=== PATIENT | female | born 1980 | race Caucasian/White ===

== ENCOUNTER 2016-09-19 13:25 | Emergency (ER) | payer MEDICAID ==
[2016-09-19 13:25] VITALS: BMI 23.3
[2016-09-19 13:38] VITALS: RESP 20
[2016-09-19 14:49] LABS: RBC URINE 3 /hpf (0-3); URINE BILIRUBIN NEGATIVE (NEGATIVE); URINE BLOOD 1+ (NEGATIVE); URINE COLOR Yellow (YELLOW); URINE GLUCOSE (UA) NORMAL (Normal); URINE KETONE NEGATIVE (NEGATIVE); URINE LEUKOCYTE ESTERASE NEG Leu/uL (Negative); URINE PROTEIN NEGATIVE (NEGATIVE); URINE UROBILINOGEN NORMAL mg/dL (0.2-1.0); WBC URINE 1 /hpf (0-5)
--- NOTE | 2016-09-19 14:56 | C.PDOC ---
History Of Present Illness The patient, a 36 y/o female whose PMHx includes chronic lower back pain, presents to the ED for evaluation of exacerbation of lower back pain which began a few days ago. Patient denies fever, chills, abdominal pain, UTI symptoms , urinary/bowel incontinence, saddle anesthesia, upper/lower extremity numbness/ weakness, or recent trauma/injury to the affected area. Time Seen by Provider: 09/19/16 14:03 Chief Complaint (Nursing): Back Pain History Per: Patient History/Exam Limitations: no limitations Onset/Duration Of Symptoms: Persistent Current Symptoms Are (Timing): Still Present Quality Of Discomfort: "Pain" Previous Symptoms: Back Pain, Chronic Pain Associated Symptoms: denies: Incontinence, New Weakness, New Numbness Additional History Per: Patient Past Medical History Reviewed: Historical Data, Nursing Documentation, Vital Signs Vital Signs: Last Vital Signs Temp 97.8 F 09/19/16 15:06 Pulse 80 09/19/16 15:06 Resp 20 09/19/16 15:06 BP 97/67 L 09/19/16 15:06 Pulse Ox 99 09/19/16 16:25 - Medical History PMH: Back Problems Surgical History: No Surg Hx Family History: States: Unknown Family Hx - Social History Hx Tobacco Use: No Hx Alcohol Use: No Hx Substance Use: No - Immunization History Hx Tetanus Toxoid Vaccination: No Hx Influenza Vaccination: No Hx Pneumococcal Vaccination: No Review Of Systems Except As Marked, All Systems Reviewed And Found Negative. Constitutional: Negative for: Fever, Chills Gastrointestinal: Negative for: Abdominal Pain Genitourinary: Negative for: Dysuria, Incontinence, Hematuria Musculoskeletal: Positive for: Back Pain (lower ) Neurological: Negative for: Weakness, Numbness, Other (saddle anesthesia ) Physical Exam - Physical Exam Appears: Well, Non-toxic, No Acute Distress Skin: Normal Color, Warm, Dry, No Rash Eye(s): bilateral: PERRL Throat: Normal, No Erythema, No Exudate Neck: Supple Cardiovascular: Rhythm Regular Respiratory: No Decreased Breath Sounds, No Accessory Muscle Use, No Stridor, No Wheezing Gastrointestinal/Abdominal: Soft, No Tenderness, No Distention, No Guarding Back: No CVA Tenderness, Paraspinal Tenderness (diffuse lumbar paraspinal tenderness. No midine tenderness. No skin changes, no palpable deformity.) Extremity: No Pedal Edema, No Deformity Neurological/Psych: Oriented x3, Normal Speech, Normal Motor, Normal Sensation, Normal Reflexes ED Course And Treatment O2 Sat by Pulse Oximetry: 99 (on RA ) Pulse Ox Interpretation: Normal Progress Note: UA ordered and reviewed. Patient received Motrin PO and Valium PO. On re-evaluation, pt is afebrile, hemodynamicaly stable. Ambulatory in ED with stable gait. ENT: no acute findings. Abd: benign. Neurologicaly intact. UA results review and appears normal. Pt has clinical findings c/w chronic lower back pain.Pt advised. ref. to F/u with PMD and PM in 1-2 days for re- eavluation. Return to ED if any worsening or new changes. Disposition Counseled Patient/Family Regarding: Studies Performed, Diagnosis, Need For Followup, Rx Given - Disposition Referrals: Sue Mcqueen MD [Non-Staff] - Disposition: HOME/ ROUTINE Disposition Time: 14:53 Condition: STABLE Additional Instructions: Light duty to lower back, avoid heavy lifting, bending, etc. Take medication as prescribed Follow up with PMD in 2-3 days for re-evaluation. Return to ED if any worsening or new changes. Prescriptions: Ibuprofen [Motrin Tab] 600 mg PO Q6 #20 tab Methocarbamol [Robaxin] 500 mg PO TID #14 tab traMADol [Ultram] 50 mg PO TID #7 tab Instructions: Chronic Back Pain (ED) - Clinical Impression Clinical Impression: Low back pain - PA / CHEMISTRY TEACHER / Resident Statement MD/DO has reviewed & agrees with the documentation as recorded. - Scribe Statement The provider has reviewed the documentation as recorded by the Scribe (Eulalia Montenegro) All medical record entries made by the Scribe were at my direction and personally dictated by me. I have reviewed the chart and agree that the record accurately reflects my personal performance of the history, physical exam, medical decision making, and the department course for this patient. I have also personally directed, reviewed, and agree with the discharge instructions and disposition.
[2016-09-19 15:07] VITALS: BP 97/67; PULSE 80; TEMP 97.8; O2SAT 99
== END 2016-09-19 15:07 | disposition home or self-care (01) ==
LOC: C.ER 13:25
DX: M54.5 Low back pain (principal)

== ENCOUNTER 2016-10-31 10:02 | Emergency (ER) | payer MEDICAID ==
[2016-10-31 10:04] VITALS: BMI 23.8
[2016-10-31 10:08] VITALS: BP 113/74; PULSE 86; RESP 18; TEMP 98; O2SAT 100
--- NOTE | 2016-10-31 10:24 | C.PDOC ---
History Of Present Illness 36 year old female presents to the ED with complaints of left sided back pain that radiates down to the left buttocks and lateral thigh exacerbated with back extension. Patient suffered from back pain for 10 years and had a MRI approximately 5 years ago showing herniated disks. She states she has had multiple prior ER visits for back pain that is typically diffuse lower back pain. Patient also notes no relief with ultram or muscle relaxers but is requesting "shot [she] got last time". Patient denies any associated numbness or weakness. Time Seen by Provider: 10/31/16 10:23 Chief Complaint (Nursing): Back Pain History Per: Patient History/Exam Limitations: no limitations Onset/Duration Of Symptoms: Persistent Current Symptoms Are (Timing): Still Present Quality Of Discomfort: "Pain" Previous Symptoms: Back Pain Associated Symptoms: None Exacerbating Factor(s): Other (back extension ) Recent travel outside of the [place]: No Additional History Per: Prior Records Past Medical History Reviewed: Historical Data, Nursing Documentation, Vital Signs Vital Signs: Last Vital Signs Temp 98 F 10/31/16 10:06 Pulse 86 10/31/16 10:06 Resp 18 10/31/16 10:06 BP 113/74 10/31/16 10:06 Pulse Ox 100 10/31/16 11:09 - Medical History PMH: Back Problems Family History: States: Unknown Family Hx - Social History Hx Tobacco Use: No Hx Alcohol Use: No Hx Substance Use: No - Immunization History Hx Tetanus Toxoid Vaccination: No Hx Influenza Vaccination: No Hx Pneumococcal Vaccination: No Review Of Systems Constitutional: Negative for: Fever, Chills Cardiovascular: Negative for: Chest Pain Respiratory: Negative for: Shortness of Breath Gastrointestinal: Negative for: Nausea, Vomiting, Abdominal Pain, Diarrhea Musculoskeletal: Positive for: Back Pain, Leg Pain (radiating from back pain to left buttocks and lateral thigh ) Neurological: Negative for: Weakness, Numbness Physical Exam - Physical Exam Appears: Non-toxic, No Acute Distress Skin: Warm, Dry Head: Atraumatic Eye(s): bilateral: Normal Inspection, PERRL, EOMI Oral Mucosa: Moist Neck: Supple Chest: Symmetrical, No Deformity Cardiovascular: Rhythm Regular Respiratory: Normal Breath Sounds, No Rhonchi, No Wheezing Back: No CVA Tenderness, No Vertebral Tenderness, Decreased ROM (limited full extension due to pain ), No Paraspinal Tenderness Extremity: Normal ROM, No Tenderness Neurological/Psych: Oriented x3, Normal Speech, Normal Cognition, Normal Cranial Nerves, Normal Motor, Normal Sensation, Normal Reflexes Gait: Steady ED Course And Treatment O2 Sat by Pulse Oximetry: 100 (room air ) Progress - Data Reviewed Data Reviewed: Old records Disposition Counseled Patient/Family Regarding: Diagnosis, Need For Followup, Rx Given - Disposition Referrals: YOUR,PMD [Other] Disposition: HOME/ ROUTINE Disposition Time: 10:34 Condition: IMPROVED Prescriptions: Dexamethasone 12 mg PO ONCE #2 tab Ibuprofen [Motrin] 600 mg PO Q6 #30 tab Instructions: Sciatica (ED) Forms: Work Excuse - Clinical Impression Clinical Impression: Sciatica - Scribe Statement The provider has reviewed the documentation as recorded by the Scribcory Romo All medical record entries made by the Scribe were at my direction and personally dictated by me. I have reviewed the chart and agree that the record accurately reflects my personal performance of the history, physical exam, medical decision making, and the department course for this patient. I have also personally directed, reviewed, and agree with the discharge instructions and disposition.
== END 2016-10-31 10:47 | disposition home or self-care (01) ==
LOC: C.ER 10:02
DX: M54.32 Sciatica, left side (principal)
CPT/HCPCS: 96372; 99283; J1885

== ENCOUNTER 2017-01-24 10:36 | Emergency (ER) | payer MEDICAID ==
[2017-01-24 10:36] VITALS: BMI 23.8
[2017-01-24 11:42] LABS: URINE BILIRUBIN NEGATIVE (NEGATIVE); URINE BLOOD 1+ (NEGATIVE); URINE COLOR Yellow (YELLOW); URINE GLUCOSE (UA) NORMAL (Normal); URINE KETONE NEGATIVE (NEGATIVE); URINE LEUKOCYTE ESTERASE NEG Leu/uL (Negative); URINE PROTEIN NEGATIVE (NEGATIVE); URINE UROBILINOGEN NORMAL mg/dL (0.2-1.0); WBC URINE < 1 /hpf (0-5)
--- NOTE | 2017-01-24 11:42 | C.PDOC ---
History Of Present Illness 36 yo female w/o significant PMHx come in for evaluation of B/L breast pain gradually developed for past 2 days. Pt sts, pain is localized, reproducible over B/L breasts. Today, " felt sick, weak and have headache". Otherwise, pt denies fever, chills, previous hx of breast ds, denies current breast feeding, CP, SOB, dyspnea, diaphoresis, palpitation, abd. pain, N/V/D, UTI sx, LNMP-. Ambulate to ED for evaluation, not in any apparent distress. Time Seen by Provider: 01/24/17 11:29 Chief Complaint (Nursing): Breast Problem History Per: Patient Onset/Duration Of Symptoms: Gradual Past Medical History Reviewed: Historical Data, Nursing Documentation, Vital Signs Vital Signs: Last Vital Signs Temp 98.5 F 01/24/17 10:48 Pulse 87 01/24/17 10:48 Resp 16 01/24/17 10:48 BP 103/68 01/24/17 10:48 Pulse Ox 100 01/24/17 11:45 - Medical History PMH: Back Problems Denies: Malignancy Surgical History: No Surg Hx Family History: States: No Known Family Hx - Social History Hx Tobacco Use: No Hx Alcohol Use: No Hx Substance Use: No - Immunization History Hx Tetanus Toxoid Vaccination: No Hx Influenza Vaccination: No Hx Pneumococcal Vaccination: No Review Of Systems Except As Marked, All Systems Reviewed And Found Negative. Constitutional: Negative for: Fever, Chills Eyes: Negative for: Vision Change ENT: Negative for: Ear Discharge, Nose Discharge, Throat Pain, Throat Swelling Cardiovascular: Positive for: Other ((+) B/L breast pain). Negative for: Chest Pain, Palpitations, Orthopnea, Paroxysmal Noc. Dyspnea, Light Headedness Respiratory: Negative for: Cough, Shortness of Breath, Pleuritic Pain, Sputum, Wheezing Gastrointestinal: Negative for: Nausea, Vomiting, Abdominal Pain, Diarrhea Genitourinary: Negative for: Dysuria Musculoskeletal: Negative for: Neck Pain, Back Pain Skin: Negative for: Rash Neurological: Negative for: Weakness, Numbness, Altered Mental Status, Headache , Dizziness Physical Exam - Physical Exam Appears: Well, Non-toxic, No Acute Distress Skin: Normal Color, Warm, Dry, No Rash Eye(s): bilateral: PERRL Ear(s): Bilateral: Normal Nose: No Flaring, No Discharge Oral Mucosa: Moist, No Drooling Throat: No Erythema, No Exudate, No Drooling Neck: Supple Lymphatic: No Axilla Node Tenderness Chest: Symmetrical, No Deformity, Other (B/L breast tenderness lateral aspect, no skin changes, no nipple changes or discahrges. No edema or erythema, no palpable masses B/L.) Cardiovascular: Rhythm Regular, No Murmur, No JVD Respiratory: No Stridor, No Wheezing Gastrointestinal/Abdominal: Soft, No Tenderness Back: No CVA Tenderness Extremity: Normal ROM, No Pedal Edema, No Deformity Neurological/Psych: Oriented x3, Normal Speech, Normal Motor, Normal Sensation, Normal Reflexes ED Course And Treatment - Laboratory Results Urine POC: Negative O2 Sat by Pulse Oximetry: 100 Pulse Ox Interpretation: Normal Progress Note: On re-eval, pt is afebrile, hemodynamicaly tsable. non-toxic. Tolerate Po well in ED. PulseOx 1005 RA. ENT: no acute findings. neck: Supple , (-) JVD. Lungs: CTA B/L, BS equal B/L. CVS: (+)S1S2, reg. Abd: benign, (-) guarding, (-) rebound. Breast:exam c/w mild breast B/L, no cellulitis, no palpable masses. UA results review. Pt advised to F/U with REPLANTING MACHINE CREWMAN, Breast surgery for further eval/mammogramm and tx. return to ED if any new changes. Disposition Counseled Patient/Family Regarding: Studies Performed, Diagnosis, Need For Followup, Rx Given - Disposition [facility] [Outside] Disposition: HOME/ ROUTINE Disposition Time: 11:58 Condition: STABLE Additional Instructions: TAKE PAIN MEDICATION PRESCRIBED CHANGE BRA TO DIFFERENT FOLLOW UP WITH PMD, REPLANTING MACHINE CREWMAN AND BREAST SPECIALIST IN 2-3 DAYS FOR MAMMOGRAM AND FURTHER EVALUATION AND TREATMENT OF BREAST PAIN RETURN TO ED IF ANY NEW CHANGES. Prescriptions: traMADol [Ultram] 50 mg PO TID #7 tab Forms: [place] (Serbian) - Clinical Impression Clinical Impression: Pain of breast
[2017-01-24 11:45] LABS: RBC URINE 3 /hpf (0-3)
[2017-01-24 12:35] VITALS: BP 119/69; PULSE 72; RESP 18; TEMP 98.2; O2SAT 98
== END 2017-01-24 12:35 | disposition home or self-care (01) ==
LOC: C.ER 10:36
DX: N64.4 Mastodynia (principal)

== ENCOUNTER 2017-03-06 16:44 | Emergency (ER) | payer MEDICAID ==
[2017-03-06 16:44] VITALS: BMI 23.8
[2017-03-06 17:45] LABS: BASO # 0.1 K/uL (0.0-0.2); BASO % 0.7 % (0.0-2.0); EOS # 0.2 K/uL (0.0-0.7); EOS % 2.4 % (0.0-4.0); HEMATOCRIT 39.3 % (34.0-47.0); LYMPH # 1.9 K/uL (1.0-4.3); LYMPH % 25.4 % (20.0-40.0); MEAN CORPUSCULAR HEMOGLOBIN 30.5 pg (27.0-31.0); MEAN CORPUSCULAR HGB CONC 34.2 g/dL (33.0-37.0); MEAN PLATELET VOLUME 7.5 fL (7.2-11.7); MONO # 0.8 K/uL (0.0-0.8); MONO % 10.8 % (0.0-10.0); NRBC % 0.1 % (0.0-2.0); RED CELL DISTRIBUTION WIDTH 12.9 % (11.5-14.5); WHITE BLOOD COUNT 7.5 K/uL (4.8-10.8)
--- NOTE | 2017-03-06 17:52 | C.PDOC ---
History Of Present Illness 37 year old female, who is currently around 5 weeks gestational age, presents to the ED for evaluation of lower pelvic cramping associated with vaginal spotting which began around 1 day ago. Patient denies fever, chill, and back pain at this time. Time Seen by Provider: 03/06/17 17:16 Chief Complaint (Nursing): Female Genitourinary History Per: Patient History/Exam Limitations: no limitations Onset/Duration Of Symptoms: Hrs Current Symptoms Are (Timing): Still Present Quality Of Discomfort: Cramping Associated Symptoms: denies: Fever, Chills, Back Pain Additional History Per: Patient Abnormal Vaginal Bleeding: Yes Past Medical History Reviewed: Historical Data, Nursing Documentation, Vital Signs Vital Signs: Last Vital Signs Temp 98.6 F 03/06/17 20:31 Pulse 88 03/06/17 20:31 Resp 18 03/06/17 20:31 BP 106/66 03/06/17 20:31 Pulse Ox 98 03/06/17 20:31 - Medical History PMH: Back Problems Denies: Malignancy Surgical History: No Surg Hx Family History: States: Unknown Family Hx - Social History Hx Tobacco Use: No Hx Alcohol Use: No Hx Substance Use: No - Immunization History Hx Tetanus Toxoid Vaccination: No Hx Influenza Vaccination: No Hx Pneumococcal Vaccination: No Review Of Systems Constitutional: Negative for: Fever, Chills Genitourinary: Positive for: Vaginal Bleeding (spotting ), Pelvic Pain Musculoskeletal: Negative for: Back Pain Physical Exam - Physical Exam Appears: Non-toxic, No Acute Distress Skin: Normal Color, Warm, Dry Head: Atraumatic, Normacephalic Eye(s): bilateral: Normal Inspection Oral Mucosa: Moist Neck: Supple Chest: Symmetrical, No Deformity, No Tenderness Cardiovascular: Rhythm Regular, No Murmur Respiratory: Normal Breath Sounds, No Rales, No Rhonchi, No Wheezing Gastrointestinal/Abdominal: Soft, No Tenderness, No Guarding, No Rebound Extremity: Normal ROM, Capillary Refill (less than 2 seconds ) Neurological/Psych: Oriented x3, Normal Speech, Normal Cognition Gait: Steady ED Course And Treatment - Laboratory Results Result Diagrams: 03/06/17 17:41 03/06/17 17:41 Lab Interpretation: Abnormal (QHCG 45, O+) Urine POC: Positive (, O+) O2 Sat by Pulse Oximetry: 99 (on RA) Pulse Ox Interpretation: Normal - CT Scan/US Transabd US Other Rad Studies (CT/US): Read By Radiologist, Radiology Report Reviewed CT/US Interpretation: IMPRESSION: 1. No intrauterine gestation. DDX: Early IUP , missed , ectopic . Transvaginal US Other Rad Studies (CT/US): Read By Radiologist, Radiology Report Reviewed CT/US Interpretation: IMPRESSION: 1. No intrauterine gestation. DDX: Early IUP , missed , ectopic . Progress Note: Bloodwork, UA, and Transvaginal US ordered and reviewed. Tylenol PO administered. Reevaluation Time: 20:02 Reassessment Condition: Improved Medical Decision Making Medical Decision Making: early IUP, missed AB, ? early ectopic Disposition Doctor Will See Patient In The: Office Counseled Patient/Family Regarding: Studies Performed, Diagnosis - Disposition Referrals: Sue Mcqueen MD [Non-Staff] - Disposition: HOME/ ROUTINE Disposition Time: 20:06 Condition: GOOD Additional Instructions: QHCG 45.5 muy bajo Blood Type: O+ Examen de Ultrasonido: [place] adentro del utero Retressa en 3 suarez para repetir la prueba de la hormona de embarasso Si esta embarrasada,va subir Si No esta embarrasada- va bajar. Instructions: Threatened Miscarriage (ED), (ED) Forms: [employer] (Urdu) Print Language: TANZANIAN - Clinical Impression Clinical Impression: Positive urine test - Scribe Statement The provider has reviewed the documentation as recorded by the Scribe (Eulalia Montenegro) Provider Attestation: All medical record entries made by the Scribe were at my direction and personally dictated by me. I have reviewed the chart and agree that the record accurately reflects my personal performance of the history, physical exam, medical decision making, and the department course for this patient. I have also personally directed, reviewed, and agree with the discharge instructions and disposition.
[2017-03-06 17:53] LABS: CHLORIDE 100 mmol/L (98-107); POTASSIUM 3.8 mmol/L (3.6-5.2); SODIUM 136 mmol/L (132-148)
[2017-03-06 17:55] LABS: BILIRUBIN,TOTAL 0.6 mg/dL (0.2-1.3); GFR AFRICAN-AMERICAN > 60
[2017-03-06 17:56] LABS: ALKALINE PHOSPHATASE 71 U/L (38-126); ALT/SGPT 44 U/L (9-52); AST/SGOT 22 U/L (14-36); BLOOD UREA NITROGEN 8 mg/dL (7-17); CARBON DIOXIDE 24 mmol/L (22-30); GLUCOSE,RANDOM 77 mg/dL (65-105); TOTAL PROTEIN 8.9 g/dL (6.3-8.3)
[2017-03-06 17:57] LABS: CALCIUM 9.1 mg/dl (8.6-10.4)
--- NOTE | 2017-03-06 19:51 | US ---
EXAM: US First Trimester, Transabdominal CLINICAL HISTORY: 37 years old, female; Pain; Pelvic pain; Patient HX: Lmp 01/25/17, bhcg 45.50; Additional info: 5 weeks preg, spotting TECHNIQUE: Real-time transabdominal obstetrical ultrasound of the maternal pelvis and a first trimester with image documentation. COMPARISON: No relevant prior studies available. FINDINGS: Gestation: No intrauterine gestational sac. Uterus/cervix: Endometrium: 0.9 cm in thickness. Closed cervix. Ovaries: Normal ovaries. No adnexal masses. Free fluid: No significant free fluid. IMPRESSION: 1. No intrauterine gestation. DDX: Early IUP, missed , ectopic . EXAM: US , Transvaginal CLINICAL HISTORY: 37 years old, female; Pain; Pelvic pain; Patient HX: Lmp 01/25/17, bhcg 45.50; Additional info: 5 weeks preg, spotting TECHNIQUE: Real-time transvaginal obstetrical ultrasound of the maternal pelvis and a first trimester with image documentation. Transvaginal imaging was used for better evaluation of the fetus and adnexa. COMPARISON: No relevant prior studies available. FINDINGS: Gestation: No intrauterine gestational sac. Uterus/cervix: Endometrium: 0.9 cm in thickness. Closed cervix. Ovaries: Normal ovaries. No adnexal masses. Free fluid: No significant free fluid.
[2017-03-06 20:32] VITALS: BP 106/66; PULSE 88; RESP 18; TEMP 98.6
[2017-03-06 20:47] VITALS: O2SAT 99
== END 2017-03-06 20:32 | disposition home or self-care (01) ==
LOC: C.ER 16:44
DX: O26.851 Spotting complicating pregnancy, first trimester (principal); Z3A.01 Less than 8 weeks gestation of pregnancy

== ENCOUNTER 2017-03-10 07:40 | Emergency (ER) | payer MEDICAID ==
[2017-03-10 07:40] VITALS: BMI 23.8
[2017-03-10 07:44] VITALS: O2SAT 100
--- NOTE | 2017-03-10 09:16 | C.PDOC ---
History Of Present Illness 37 y/o F presents for repeat beta hcg. Patient states bleeding and abdominal pain have both improved. Denies fever or vomiting. Time Seen by Provider: 03/10/17 07:42 Chief Complaint (Nursing): Medical Clearance Past Medical History Vital Signs: Last Vital Signs Temp 98.2 F 03/10/17 09:20 Pulse 60 03/10/17 09:20 Resp 17 03/10/17 09:20 BP 105/69 03/10/17 09:20 Pulse Ox 100 03/10/17 09:20 - Medical History PMH: Back Problems Denies: Malignancy Family History: States: Unknown Family Hx - Social History Hx Tobacco Use: No Hx Alcohol Use: No Hx Substance Use: No - Immunization History Hx Tetanus Toxoid Vaccination: No Hx Influenza Vaccination: No Hx Pneumococcal Vaccination: No Review Of Systems Except As Marked, All Systems Reviewed And Found Negative. Constitutional: Negative for: Fever Cardiovascular: Negative for: Chest Pain Physical Exam - Physical Exam Appears: Non-toxic, No Acute Distress Skin: Normal Color Head: Normacephalic Oral Mucosa: Moist Cardiovascular: Rhythm Regular Respiratory: Normal Breath Sounds Gastrointestinal/Abdominal: Soft, No Tenderness Neurological/Psych: Normal Speech, Normal Cognition Gait: Steady ED Course And Treatment O2 Sat by Pulse Oximetry: 100 Medical Decision Making Medical Decision Making: Repeat beta decreasing, consistent with spontaneous . Follow up with OBGYN, return to ED for fever, worsening abdominal pain, or vomiting. Disposition - Disposition Disposition: HOME/ ROUTINE Disposition Time: 09:15 Condition: STABLE Instructions: Spontaneous Miscarriage (ED) Forms: [employer] ([place]ican) - Clinical Impression Clinical Impression: Spontaneous
[2017-03-10 09:21] VITALS: BP 105/69; PULSE 60; RESP 17; TEMP 98.2
== END 2017-03-10 09:33 | disposition home or self-care (01) ==
LOC: C.ER 07:40
DX: O03.9 Complete or unspecified spontaneous abortion without complication (principal)

== ENCOUNTER 2017-08-16 08:06 | Emergency (ER) | payer MEDICAID ==
[2017-08-16 08:07] VITALS: BMI 23.8
[2017-08-16 08:24] VITALS: O2SAT 100
[2017-08-16] MEDS ORDERED: Sodium Chloride 0.9% 1,000 ML IV ONE (09:40)
[2017-08-16] MEDS ORDERED: Sodium Chloride 0.9% 1,000 ML ONE (09:54)
[2017-08-16 10:01] LABS: HCG,QUALITATIVE URINE NEGATIVE (NEGATIVE)
[2017-08-16 10:06] LABS: SQUAMOUS EPITHIAL 1 /hpf (0-5); URINE BACTERIA RARE (<OCC); URINE BILIRUBIN NEGATIVE (NEGATIVE); URINE BLOOD NEGATIVE (NEGATIVE); URINE CLARITY Clear (Clear); URINE COLOR Straw (YELLOW); URINE GLUCOSE (UA) NORMAL (Normal); URINE LEUKOCYTE ESTERASE NEG Leu/uL (Negative); URINE PROTEIN NEGATIVE (NEGATIVE); URINE UROBILINOGEN NORMAL mg/dL (0.2-1.0)
[2017-08-16 10:08] LABS: BASO # 0.1 K/uL (0.0-0.2); BASO % 1.2 % (0.0-2.0); EOS % 0.5 % (0.0-4.0); HEMOGLOBIN 12.8 g/dL (11.0-16.0); LYMPH # 1.5 K/uL (1.0-4.3); LYMPH % 23.5 % (20.0-40.0); MEAN CORPUSCULAR HEMOGLOBIN 30.8 pg (27.0-31.0); MEAN CORPUSCULAR HGB CONC 34.3 g/dL (33.0-37.0); MEAN PLATELET VOLUME 7.5 fL (7.2-11.7); MONO # 0.6 K/uL (0.0-0.8); MONO % 9.3 % (0.0-10.0); NEUT # 4.3 K/uL (1.8-7.0); NEUT % 65.5 % (50.0-75.0); RBC 4.15 Mil/uL (3.80-5.20); RED CELL DISTRIBUTION WIDTH 13.5 % (11.5-14.5); WHITE BLOOD COUNT 6.5 K/uL (4.8-10.8)
[2017-08-16 10:20] LABS: ALB/GLOB RATIO 1.2 (1.0-2.1); ALBUMIN 4.4 g/dL (3.5-5.0); ALT/SGPT 19 U/L (9-52); AST/SGOT 22 U/L (14-36); BLOOD UREA NITROGEN 8 mg/dL (7-17); CALCIUM 8.9 mg/dl (8.6-10.4); GFR AFRICAN-AMERICAN > 60; GFR NON-AFRICAN AMERICAN > 60
--- NOTE | 2017-08-16 10:54 | C.PDOC ---
History Of Present Illness 37 y/o female presents to ED with c/o fever for 3 nights only on evening as per patient with max of 102.6. Patient states fever resolves with ibuprofen and with symptoms has generalized weakness and ache to arms and legs. Patient denies cough, rhinorrhea, chest pain, sob, abdominal pain, dysuria, n/v/d or any other complaints at this time. Time Seen by Provider: 08/16/17 08:52 Chief Complaint (Nursing): Fever History Per: Patient History/Exam Limitations: no limitations Onset/Duration Of Symptoms: Days Current Symptoms Are (Timing): Still Present Associated Symptoms: Fever Past Medical History Reviewed: Historical Data, Nursing Documentation, Vital Signs Vital Signs: Last Vital Signs Temp 97.7 F 08/16/17 11:30 Pulse 54 L 08/16/17 11:30 Resp 16 08/16/17 11:30 BP 104/60 08/16/17 11:30 Pulse Ox 100 08/16/17 11:43 - Medical History PMH: Back Problems Surgical History: No Surg Hx Family History: States: No Known Family Hx - Social History Hx Tobacco Use: No Hx Alcohol Use: No Hx Substance Use: No - Immunization History Hx Tetanus Toxoid Vaccination: No Hx Influenza Vaccination: No Hx Pneumococcal Vaccination: No Review Of Systems Constitutional: Positive for: Fever. Negative for: Chills Cardiovascular: Negative for: Chest Pain Respiratory: Negative for: Cough, Shortness of Breath Gastrointestinal: Negative for: Nausea, Vomiting, Abdominal Pain, Diarrhea Skin: Negative for: Rash Neurological: Positive for: Weakness Physical Exam - Physical Exam Appears: Non-toxic, No Acute Distress Skin: Warm, Dry, No Rash Head: Atraumatic, Normacephalic Eye(s): bilateral: PERRL, EOMI Ear(s): Bilateral: Normal Oral Mucosa: Moist Throat: Normal, No Erythema, No Exudate Neck: Normal ROM, Supple Cardiovascular: Rhythm Regular Respiratory: Normal Breath Sounds, No Rales, No Rhonchi, No Wheezing Gastrointestinal/Abdominal: Soft, No Tenderness, No Guarding, No Rebound Extremity: Normal ROM, Capillary Refill (<2 seconds) Neurological/Psych: Oriented x3, Normal Speech, Normal Cognition, Normal Motor, Normal Sensation ED Course And Treatment - Laboratory Results Result Diagrams: 08/16/17 10:02 08/16/17 10:02 O2 Sat by Pulse Oximetry: 100 (RA) Pulse Ox Interpretation: Normal Medical Decision Making Medical Decision Making: Plan: IV fluids, Blood work, Influenza test ordered. Progress: On re eval pt feeling better, discussed lab results. patient d//c with instructed f.u to pmd Disposition Counseled Patient/Family Regarding: Studies Performed, Diagnosis, Need For Followup - Disposition Referrals: Sue Mcqueen MD [Non-Staff] - Disposition: HOME/ ROUTINE Disposition Time: 11:35 Condition: GOOD Additional Instructions: Please follow up with your doctor if fever persists. Keep diary of recorded temperatures. Return to ER for any worse symptoms. Instructions: Fever, Adult (DC) Forms: General Discharge Instructions, [facility] (Persian), Work Excuse - Clinical Impression Clinical Impression: Well adult exam - PA / ACID MIXER / Resident Statement MD/DO has reviewed & agrees with the documentation as recorded. - Scribe Statement The provider has reviewed the documentation as recorded by the Savageibcory Deng All medical record entries made by the Savageibcory were at my direction and personally dictated by me. I have reviewed the chart and agree that the record accurately reflects my personal performance of the history, physical exam, medical decision making, and the department course for this patient. I have also personally directed, reviewed, and agree with the discharge instructions and disposition.
[2017-08-16 11:31] VITALS: BP 104/60; PULSE 54; RESP 16; TEMP 97.7
== END 2017-08-16 12:00 | disposition home or self-care (01) ==
LOC: C.ER 08:06
DX: Z00.00 Encounter for general adult medical examination without abnormal findings (principal)
CPT/HCPCS: 80053; 81001; 84703; 85025; 87804; 99285; J7040

== ENCOUNTER 2018-03-26 12:07 | Emergency (ER) | payer MEDICAID ==
[2018-03-26 12:07] VITALS: BMI 23.8
[2018-03-26 12:26] VITALS: BP 107/68; RESP 18; O2SAT 100
--- NOTE | 2018-03-26 12:43 | C.PDOC ---
History Of Present Illness 38 y/o female c/o vaginal bleeding, passing clots and using 3 pads per day with lower abdominal cramps since Mar 18. pt had normal menses few days prior to that, stopped bleeding for a few days, then started again. no nausea or vomi ting. no urinary symptoms. Time Seen by Provider: 03/26/18 12:32 Chief Complaint (Nursing): Female Genitourinary History Per: Patient History/Exam Limitations: no limitations Onset/Duration Of Symptoms: Days (8) Current Symptoms Are (Timing): Still Present Severity: Moderate Quality Of Discomfort: Cramping Associated Symptoms: denies: Fever, Chills, Nausea, Vomiting, Urinary Symptoms Alleviating Factors: None Past Medical History Reviewed: Historical Data, Nursing Documentation, Vital Signs Vital Signs: Last Vital Signs Temp 98.5 F 03/26/18 12:25 Pulse 64 03/26/18 12:25 Resp 18 03/26/18 12:25 BP 107/68 03/26/18 12:25 Pulse Ox 100 03/26/18 12:25 - Medical History PMH: Back Problems Denies: Malignancy Family History: States: Unknown Family Hx - Social History Hx Tobacco Use: No Hx Alcohol Use: No Hx Substance Use: No - Immunization History Hx Tetanus Toxoid Vaccination: No Hx Influenza Vaccination: No Hx Pneumococcal Vaccination: No Review Of Systems Constitutional: Negative for: Fever, Chills Cardiovascular: Negative for: Chest Pain Respiratory: Negative for: Cough Gastrointestinal: Positive for: Abdominal Pain. Negative for: Nausea, Vomiting, Diarrhea Genitourinary: Positive for: Vaginal Bleeding Musculoskeletal: Negative for: Back Pain Skin: Negative for: Rash Neurological: Negative for: Weakness, Numbness Physical Exam - Physical Exam Appears: Non-toxic, No Acute Distress Head: Atraumatic, Normacephalic Neck: Supple Cardiovascular: Rhythm Regular, No Murmur Respiratory: Normal Breath Sounds Gastrointestinal/Abdominal: Bowel Sounds (normal ), Soft, Tenderness (mild suprapubic ), No Distention, No Guarding, No Rebound Back: No CVA Tenderness Neurological/Psych: Oriented x3, Normal Speech, Normal Cognition ED Course And Treatment - Laboratory Results Result Diagrams: 03/26/18 13:13 03/26/18 13:56 O2 Sat by Pulse Oximetry: 100 (RA) Pulse Ox Interpretation: Normal - CT Scan/US Transvaginal US Other Rad Studies (CT/US): Radiology Report Reviewed, U/S Performed By Me CT/US Interpretation: Impression: 1. Low-level beta HCG measuring 108. No discrete intrauterine identified. In the setting of a positive test and lack of discrete intrauterine , considerations may include an early versus missed versus ectopic . Clinical correlation. 2. Gaseous distention of the bowel limits evaluation of the adnexa and ovaries. Bilateral ovaries not well visualized. Limited 1st trimester ultrasound for viability purposes only. Continued interval followup with serial ultrasound, serial HCG levels, and gynecological consultation would be helpful if clinically indicated. Medical Decision Making Medical Decision Making: Impression: vaginal bleeding with passing clots Plans: -- blood bank -- chem labs -- blood work -- Transvaginal US Reassess: Patient is resting comfortably, denies any chest pain, shortness of breath, or lightheadedness or abdominal pain. re-excam of abdomen soft, nd, nt. pt with bhcg of 108, nothing in uterus on sonogram, ovaries not well visualized. different possibilities such as threatened vs missed ab or ectopic explained to patient. pt advised to f/u with her obstetrics gyn on as scheduled and to bring sono report and lab reports. pelvic rest explained and to return to ed for worse pain, heavy bleeding. pt expressed understanding. Disposition Counseled Patient/Family Regarding: Studies Performed, Diagnosis, Need For Followup - Disposition Disposition: HOME/ ROUTINE Disposition Time: 16:12 Condition: GOOD Additional Instructions: Please follow up with your administrative assistant office manager on as scheduled and bring with you your labs tests and sonogram reports. Not clear if a missed , threatened or an ectopic . You need to get repeat blood test of bhcg and compare to see if rising or decreasing. Return to ER for heavy bleeding, such as soaking one pad per hour, abdominal pain, dizziness or passing out. Instructions: Bleeding With (DC) Forms: [facility] ([place]), General Discharge Instructions - Clinical Impression Clinical Impression: Vaginal bleeding in - PA / HEAD OF HOUSEKEEPING / Resident Statement / has reviewed & agrees with the documentation as recorded. - Scribe Statement The provider has reviewed the documentation as recorded by the Danette Alejandre Do All medical record entries made by the Scribe were at my direction and personally dictated by me. I have reviewed the chart and agree that the record accurately reflects my personal performance of the history, physical exam, medical decision making, and the department course for this patient. I have also personally directed, reviewed, and agree with the discharge instructions and disposition.
[2018-03-26 13:27] LABS: BASO # 0.1 K/uL (0.0-0.2); BASO % 0.8 % (0.0-2.0); EOS # 0.2 K/uL (0.0-0.7); EOS % 2.1 % (0.0-4.0); HEMOGLOBIN 12.5 g/dL (11.0-16.0); LYMPH # 1.8 K/uL (1.0-4.3); LYMPH % 25.3 % (20.0-40.0); MEAN CORPUSCULAR HEMOGLOBIN 30.4 pg (27.0-31.0); MEAN CORPUSCULAR HGB CONC 34.2 g/dL (33.0-37.0); MEAN PLATELET VOLUME 7.9 fL (7.2-11.7); MONO # 0.7 K/uL (0.0-0.8); MONO % 10.1 % (0.0-10.0); NEUT # 4.4 K/uL (1.8-7.0); NEUT % 61.7 % (50.0-75.0); RBC 4.12 Mil/uL (3.80-5.20); RED CELL DISTRIBUTION WIDTH 13.1 % (11.5-14.5); WHITE BLOOD COUNT 7.2 K/uL (4.8-10.8)
[2018-03-26 14:23] LABS: ALB/GLOB RATIO 1.4 (1.0-2.1); ALBUMIN 4.4 g/dL (3.5-5.0); ALT/SGPT 24 U/L (9-52); AST/SGOT 23 U/L (14-36); BLOOD UREA NITROGEN 9 mg/dL (7-17); CALCIUM 9.3 mg/dl (8.6-10.4); GFR NON-AFRICAN AMERICAN > 60
--- NOTE | 2018-03-26 15:48 | US ---
Pelvic ultrasound HISTORY: . Abdominal pain. Bleeding. Comparison: None available. Technique: Real-time sonography was performed through the pelvis utilizing transabdominal and transvaginal techniques. Findings: Low-level beta HCG measuring 108. No discrete intrauterine identified. In the setting of a positive test and lack of discrete intrauterine , considerations may include an early versus missed versus ectopic . Clinical correlation. Gaseous distention of the bowel limits evaluation of the adnexa and ovaries. Bilateral ovaries not well visualized. Uterus: 11.3 x 4.2 x 6.2 centimeters. Heterogeneous echotexture. Anteverted. Endometrium measures 6 millimeters, within normal limits. No free fluid in the pelvic cul-de-sac Right ovary: Not well visualized. Left ovary: Not well visualized. Impression: 1. Low-level beta HCG measuring 108. No discrete intrauterine identified. In the setting of a positive test and lack of discrete intrauterine , considerations may include an early versus missed versus ectopic . Clinical correlation. 2. Gaseous distention of the bowel limits evaluation of the adnexa and ovaries. Bilateral ovaries not well visualized. Limited 1st trimester ultrasound for viability purposes only. Continued interval followup with serial ultrasound, serial HCG levels, and gynecological consultation would be helpful if clinically indicated.
[2018-03-26 15:55] VITALS: PULSE 85; TEMP 98.2
== END 2018-03-26 16:24 | disposition home or self-care (01) ==
LOC: C.ER 12:07
DX: O46.91 Antepartum hemorrhage, unspecified, first trimester (principal); Z3A.00 Weeks of gestation of pregnancy not specified

== ENCOUNTER 2018-08-19 08:20 | Emergency (ER) | payer MEDICAID ==
[2018-08-19 08:30] VITALS: BMI 25.0
--- NOTE | 2018-08-19 09:11 | C.PDOC ---
History Of Present Illness 38 year old female patient presents to the ER complaining of left lower back pain. Associated sx includes abdominal cramping and weakness. Patient notes that her last period was 07/15 and she has not had her next period yet. Patient also notes her periods are usually on time or early, but never late. Patient also took a test that came out negative. 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 Patient denies fever, chills, chest pain, dysuria, hematuria, nausea and vomiting. Time Seen by Provider: 08/19/18 08:33 Chief Complaint (Nursing): Back Pain History Per: Patient History/Exam Limitations: no limitations Onset/Duration Of Symptoms: Days Current Symptoms Are (Timing): Still Present Past Medical History Reviewed: Historical Data, Nursing Documentation, Vital Signs Vital Signs: Last Vital Signs Temp 98.5 F 08/19/18 08:34 Pulse 86 08/19/18 08:34 Resp 18 08/19/18 08:34 BP 113/76 08/19/18 08:34 Pulse Ox 98 08/19/18 08:34 - Medical History PMH: Back Problems Family History: States: Unknown Family Hx - Social History Hx Tobacco Use: No Hx Alcohol Use: No Hx Substance Use: No - Immunization History Hx Tetanus Toxoid Vaccination: No Hx Influenza Vaccination: No Hx Pneumococcal Vaccination: No Review Of Systems Except As Marked, All Systems Reviewed And Found Negative. Constitutional: Negative for: Fever, Chills Cardiovascular: Negative for: Chest Pain Gastrointestinal: Positive for: Abdominal Pain (cramping ). Negative for: Nausea, Vomiting Genitourinary: Negative for: Dysuria, Hematuria Musculoskeletal: Positive for: Back Pain Neurological: Positive for: Weakness Physical Exam - Physical Exam Appears: Non-toxic, No Acute Distress Skin: Warm, Dry, No Rash Head: Atraumatic, Normacephalic Eye(s): bilateral: Normal Inspection, PERRL, EOMI Chest: Symmetrical Cardiovascular: Rhythm Regular Respiratory: Normal Breath Sounds Gastrointestinal/Abdominal: Soft, No Tenderness, No Distention, No Guarding, No Rebound Back: No CVA Tenderness, No Vertebral Tenderness, No Decreased ROM, Other (mild left lower paralumbar tenderness) Pelvic: Normal External Exam, Vaginal Discharge (scant brownish discharge), No Cervical Motion Tenderness, No Cervix Open, No Adnexal Tenderness Extremity: Normal ROM (x4), No Tenderness, No Swelling Neurological/Psych: Oriented x3, Normal Speech ED Course And Treatment - Laboratory Results Result Diagrams: 08/19/18 09:10 08/19/18 09:10 O2 Sat by Pulse Oximetry: 98 (RA) Pulse Ox Interpretation: Normal - CT Scan/US pelvic/transvaginal Other Rad Studies (CT/US): Read By Radiologist, Radiology Report Reviewed CT/US Interpretation: Accession No. : [id number]. Patient Name / ID : JAYESH [id number] / [id number]. Exam Date : 08/19/2018 09:43:40 ( Approved ). Study Comment : Sex / Age : F / 38Y. Creator : Radha Ontiveros MD. Di ctator : Radha Ontiveros MD. Carbon Coater Machine Operator : Frame Nailer : Radha Ontiveros MD. Approver2 : Report Date : 08/19/2018 10:37:21. My Comment : . Date of service: 08/19/2018. HISTORY: Lower abdominal pain. COMPARISON: 03/26/2018. TECHNIQUE: Transabdominal and transvaginal pelvic ultrasound was performed. FINDINGS: UTERUS: Measures 8.3 x 4.5 x 5.1 cm. Anteverted, normal in size and appearance. There is heterogeneous myometrial echotexture. No fibroid or other mass lesion seen. ENDOMETRIUM: Measures 12 mm in diameter. Unremarkable. CERVIX: No cervical abnormality identified. RIGHT OVARY: Measures 2.3 x 1.9 x 2.8 cm. No solid mass. Normal flow. LEFT OVARY: Measures 3.2 x 1.7 x 2.2 cm. No solid mass. Normal flow. FREE FLUID: No significant free fluid noted. OTHER FINDINGS: None. IMPRESSION: Unremarkable pelvic ultrasound. Medical Decision Making Medical Decision Making: plans: -- chem labs -- blood work -- US pelvic/transvaginal U-preg results: negative On re-exam, the patient reports improvement of symptoms. Abdomen is soft, non- tender and tolerating PO well. Lungs are CTA, heart is RRR, Ambulatory in the ED steady gait. Disposition - Disposition Referrals: [facility] [Outside] Disposition: HOME/ ROUTINE Disposition Time: 12:27 Condition: GOOD Additional Instructions: Follow up with the medical doctor within 1-2 days. Return if worsened. Instructions: Vaginitis Forms: [id number] (Luxembourgish) - Clinical Impression Clinical Impression: Cervicitis - PA / TAPROOM ATTENDANT / Resident Statement MD/DO has reviewed & agrees with the documentation as recorded. - Scribe Statement The provider has reviewed the documentation as recorded by the Danette Alejandre Do All medical record entries made by the Scribe were at my direction and personally dictated by me. I have reviewed the chart and agree that the record accurately reflects my personal performance of the history, physical exam, medical decision making, and the department course for this patient. I have also personally directed, reviewed, and agree with the discharge instructions and disposition.
[2018-08-19 09:25] LABS: SQUAMOUS EPITHIAL 1 /hpf (0-5); URINE BILIRUBIN NEGATIVE (NEGATIVE); URINE BLOOD NEGATIVE (NEGATIVE); URINE CLARITY Hazy (Clear); URINE COLOR Amber (YELLOW); URINE GLUCOSE (UA) NORMAL (Normal); URINE LEUKOCYTE ESTERASE NEG Leu/uL (Negative); URINE PROTEIN NEGATIVE (NEGATIVE); URINE UROBILINOGEN NORMAL mg/dL (0.2-1.0)
[2018-08-19 09:26] LABS: BASO # 0.1 K/uL (0.0-0.2); BASO % 0.9 % (0.0-2.0); EOS # 0.1 K/uL (0.0-0.7); EOS % 1.3 % (0.0-4.0); HEMOGLOBIN 13.6 g/dL (11.0-16.0); LYMPH # 1.3 K/uL (1.0-4.3); LYMPH % 19.9 % (20.0-40.0); MEAN CELL VOLUME 89.5 fL (81.0-99.0); MEAN CORPUSCULAR HEMOGLOBIN 30.2 pg (27.0-31.0); MEAN CORPUSCULAR HGB CONC 33.7 g/dL (33.0-37.0); MEAN PLATELET VOLUME 7.6 fL (7.2-11.7); MONO # 0.6 K/uL (0.0-0.8); MONO % 9.1 % (0.0-10.0); NEUT # 4.4 K/uL (1.8-7.0); NEUT % 68.8 % (50.0-75.0); RBC 4.51 Mil/uL (3.80-5.20); RED CELL DISTRIBUTION WIDTH 13.4 % (11.5-14.5); WHITE BLOOD COUNT 6.3 K/uL (4.8-10.8)
--- NOTE | 2018-08-19 09:26 | C.PDOC ---
<Marisela Lafleur - Last Filed: 08/19/18 09:07> <Britt Chavira - Last Filed: 08/19/18 09:27> Time Seen by Provider: 08/19/18 08:33 Chief Complaint (Nursing): Back Pain Past Medical History Vital Signs: Last Vital Signs Temp 98.5 F 08/19/18 08:34 Pulse 86 08/19/18 08:34 Resp 18 08/19/18 08:34 BP 113/76 08/19/18 08:34 Pulse Ox 98 08/19/18 08:34 - Medical History PMH: Back Problems Denies: Malignancy Family History: States: Unknown Family Hx - Social History Hx Tobacco Use: No Hx Alcohol Use: No Hx Substance Use: No - Immunization History Hx Tetanus Toxoid Vaccination: No Hx Influenza Vaccination: No Hx Pneumococcal Vaccination: No <Marisela Lafleur - Last Filed: 08/19/18 09:07> Vital Signs: Last Vital Signs Temp 98.5 F 08/19/18 08:34 Pulse 86 08/19/18 08:34 Resp 18 08/19/18 08:34 BP 113/76 08/19/18 08:34 Pulse Ox 98 08/19/18 09:26 <Britt Chavira - Last Filed: 08/19/18 09:27> ED Course And Treatment O2 Sat by Pulse Oximetry: 98 <Marisela Lafleur - Last Filed: 08/19/18 09:07> - Laboratory Results Result Diagrams: 08/19/18 09:10 Lab Results: Urine Color Parvin (YELLOW) 08/19/18 09:14 Urine Clarity Hazy (Clear) 08/19/18 09:14 Urine pH 5.0 (5.0-8.0) 08/19/18 09:14 Ur Specific [place] 1.021 (1.003-1.030) 08/19/18 09:14 Urine Protein Negative mg/dL (NEGATIVE) 08/19/18 09:14 Urine Glucose (UA) Normal mg/dL (Normal) 08/19/18 09:14 Urine Ketones Negative mg/dL (NEGATIVE) 08/19/18 09:14 Urine Blood Negative (NEGATIVE) 08/19/18 09:14 Urine Nitrate Negative (NEGATIVE) 08/19/18 09:14 Urine Bilirubin Negative (NEGATIVE) 08/19/18 09:14 Urine Urobilinogen Normal mg/dL (0.2-1.0) 08/19/18 09:14 Ur Leukocyte Esterase Neg Prema/uL (Negative) 08/19/18 09:14 Urine WBC (Auto) 1 /hpf (0-5) 08/19/18 09:14 Urine RBC (Auto) 4 /hpf (0-3) H 08/19/18 09:14 Ur Squamous Epith Cells 1 /hpf (0-5) 08/19/18 09:14 <Britt Chavira - Last Filed: 08/19/18 09:27> Disposition <Marisela Lafleur - Last Filed: 08/19/18 09:07> <Britt Chavira - Last Filed: 08/19/18 09:27> - Disposition Forms: [employer] ([place] Islander)
[2018-08-19 09:38] LABS: BLOOD UREA NITROGEN 10 mg/dL (7-17); CALCIUM 9.6 mg/dl (8.6-10.4); GFR NON-AFRICAN AMERICAN > 60; LIPASE 96 U/L (23-300)
[2018-08-19 09:44] LABS: ALB/GLOB RATIO 1.2 (1.0-2.1); ALBUMIN 4.5 g/dL (3.5-5.0); ALT/SGPT 30 U/L (9-52); AST/SGOT 40 U/L (14-36)
--- NOTE | 2018-08-19 10:41 | US ---
Date of service: 08/19/2018 HISTORY: Lower abdominal pain COMPARISON: 03/26/2018. TECHNIQUE: Transabdominal and transvaginal pelvic ultrasound was performed. FINDINGS: UTERUS: Measures 8.3 x 4.5 x 5.1 cm. Anteverted, normal in size and appearance. There is heterogeneous myometrial echotexture. No fibroid or other mass lesion seen. ENDOMETRIUM: Measures 12 mm in diameter. Unremarkable. CERVIX: No cervical abnormality identified. RIGHT OVARY: Measures 2.3 x 1.9 x 2.8 cm. No solid mass. Normal flow. LEFT OVARY: Measures 3.2 x 1.7 x 2.2 cm. No solid mass. Normal flow. FREE FLUID: No significant free fluid noted. OTHER FINDINGS: None. IMPRESSION: Unremarkable pelvic ultrasound.
[2018-08-19] MEDS ORDERED: cefTRIAXone 250 MG, Lidocaine Hydrochloride 1% 1 ML IM ONE (11:23)
[2018-08-19 12:14] VITALS: BP 101/65; PULSE 72; RESP 20; TEMP 98.3
[2018-08-19 12:28] VITALS: O2SAT 98
== END 2018-08-19 12:33 | disposition home or self-care (01) ==
LOC: C.ER 08:20
DX: N72 Inflammatory disease of cervix uteri (principal)
CPT/HCPCS: 76830; 76856; 80053; 81001; 81025; 83690; 84702; 85025; 96372; 96374; 99284; J0696; J1885